=== PATIENT | male | born 1995 | race Caucasian/White ===

== ENCOUNTER 2020-11-09 05:28 | Inpatient (IN) | payer OTHER ==
[~2020-11-09] VITALS: Ht 203.2 cm; Wt 125.2 kg
[2020-11-09] VITALS (10 sets, daily range): BP systolic 128–178; BP diastolic 68–112
[2020-11-09] MEDS ORDERED: HUMALOG100 UNIT/1 SUBQ (05:52)
[2020-11-09 05:57] LABS: BE(vivo) -21.8 mmol/L (-2 to +3); HCO3 7.5 mmol/L (22.0-26.0); PCO2 VENOUS 28.1 mmHg (41.0-51.0); PO2 VENOUS 30.8 mmHg (35.0-45.0)
[2020-11-09 06:15] LABS: HEMATOCRIT 54.6 % (42.0-52.0); HEMOGLOBIN 17.8 gm/dL (14.0-18.0); MCH 31.1 pg (26.0-34.0); MCHC 32.6 g/dL (28.0-37.0); MCV 95.3 fL (80.0-100.0); PLATELET COUNT 366 thou/uL (150-400); RBC 5.73 mil/uL (4.50-6.00); RDW 14.9 % (10.5-14.5); WBC 22.6 thou/uL (4.0-11.0)
[2020-11-09 06:19] LABS: URINE BILIRUBIN NEGATIVE (Negative); URINE BLOOD 2+ (Negative); URINE CLARITY CLEAR; URINE COLOR YELLOW; URINE GLUCOSE-RANDOM* 3+ (Negative); URINE KETONES 3+ (Negative); URINE LEUKOCYTES-REFLEX NEGATIVE (Negative); URINE NITRITE-REFLEX NEGATIVE (Negative); URINE PROTEIN (DIPSTICK) 2+ (Negative); URINE SPECIFIC GRAVITY >= 1.030 (1.005-1.035); URINE UROBILINOGEN 0.2 E.U./dl (0.2-1.0)
[2020-11-09 06:42] LABS: BE(vivo) -22.4 mmol/L (-2 to +3); HCO3 4.3 mmol/L (22.0-26.0); PCO2 13.4 mmHg (35.0-45.0); PO2 115.4 mmHg (80.0-100.0); pH 7.122 (7.360-7.450); sO2 96.9 % (92.0-98.0)
[2020-11-09 07:03] LABS: CASTS None Seen /LPF (None Seen); MUCUS 0-3 Light strn/LPF (None Seen); SQUAMOUS 0-3 Few /LPF (0-3)
[2020-11-09 07:05] LABS: BACTERIA-REFLEX None Seen /HPF (None Seen); CRYSTALS None Seen /LPF (None Seen); URINE RBC 1-2 Rare /HPF (NONE SEEN); URINE WBC-REFLEX 0-5 Rare /HPF (0-5)
[2020-11-09 07:09] LABS: ABSOLUTE NEUTROPHILS 19.2 thou/uL (1.4-8.2)
[2020-11-09 07:10] LABS: ANISOCYTOSIS 1+
--- NOTE | 2020-11-09 08:28 | NUR ---
CALLED AND SPOKE WITH NECK BAND SETTER, STATES PT BLOOD NEEDS TO BE SPUN & RAN AGAIN REPORTS LABS SHOULD BE COMPLETED IN APPROX 20 MIN, NOTIFIED PROVIDER
[2020-11-09 09:31] LABS: ALBUMIN 2.8 g/dL (3.4-5.0); CALCIUM 7.9 mg/dL (8.5-10.1); CREATININE 1.1 mg/dL (0.7-1.3); TOTAL BILIRUBIN 0.9 mg/dL (0.2-1.0); TOTAL PROTEIN 7.9 g/dL (6.4-8.2)
[2020-11-09 09:33] LABS: POTASSIUM 5.7 mmol/L (3.5-5.1)
[2020-11-09 09:56] LABS: PHOSPHORUS 2.3 mg/dL (2.6-4.7)
--- NOTE | 2020-11-09 12:15 | NUR ---
Admitted to icu #[id number] with diagnosis: DKA. alert/oriented, cooperative, SR, room air, insulin gtt infusing, tolerating fluids/ice chips, voiding per urinal.
[2020-11-09] MEDS ORDERED: ACETAMINOPHEN325 M1 PO (14:44)
[2020-11-09 16:55] LABS: MAGNESIUM 2.2 mg/dL (1.8-2.4)
[2020-11-09 17:36] LABS: ALBUMIN 3.2 g/dL (3.4-5.0); CALCIUM 8.6 mg/dL (8.5-10.1); CREATININE 0.9 mg/dL (0.7-1.3); PHOSPHORUS 1.6 mg/dL (2.5-4.9)
[2020-11-09 17:46] LABS: POTASSIUM 4.2 mmol/L (3.5-5.1)
[2020-11-09 20:31] LABS: ALBUMIN 2.7 g/dL (3.4-5.0); CALCIUM 8.4 mg/dL (8.5-10.1); PHOSPHORUS 0.7 mg/dL (2.6-4.7)
[2020-11-09 21:04] LABS: POTASSIUM 3.6 mmol/L (3.5-5.1)
[2020-11-10] VITALS (21 sets, daily range): BP systolic 66–136; BP diastolic 32–81
[2020-11-10 00:33] LABS: ALBUMIN 2.7 g/dL (3.4-5.0); CALCIUM 8.7 mg/dL (8.5-10.1); PHOSPHORUS 0.4 mg/dL (2.6-4.7); POTASSIUM 3.2 mmol/L (3.5-5.1)
[2020-11-10 05:07] LABS: GLYCOHEMOGLOBIN (HGB A1C) 12.9 % (4.8-5.6)
[2020-11-10 05:18] LABS: BASOPHILS 1.2 % (0.0-2.0); EOSINOPHILS 1.6 % (0.0-3.0); HEMATOCRIT 42.1 % (42.0-52.0); LYMPHOCYTES 14.9 % (24.0-44.0); MCH 31.5 pg (26.0-34.0); MCHC 34.6 g/dL (28.0-37.0); MCV 91.2 fL (80.0-100.0); MONOCYTES 6.7 % (1.0-8.0); POLYS 75.6 % (36.0-66.0); RBC 4.62 mil/uL (4.50-6.00); RDW 14.2 % (10.5-14.5); WBC 11.9 thou/uL (4.0-11.0)
[2020-11-10 05:32] LABS: CALCIUM 8.6 mg/dL (8.5-10.1); CREATININE 0.8 mg/dL (0.7-1.3); POTASSIUM 3.6 mmol/L (3.5-5.1)
[2020-11-10 05:44] LABS: HEMOGLOBIN 14.5 gm/dL (14.0-18.0); PLATELET COUNT 266 thou/uL (150-400)
--- NOTE | 2020-11-10 06:48 | NUR ---
Pt remains DKA protocol. GAP closed. BS with in range of 150-200 mg/DL as goals. Denies of any GI discomfort. Well tolerated clear liquid diet. VSS. He is continue progressing toward plan of cares.
[2020-11-10 10:23] LABS: ALBUMIN 2.3 g/dL (3.4-5.0); CALCIUM 8.3 mg/dL (8.5-10.1); CREATININE 0.7 mg/dL (0.7-1.3); PHOSPHORUS 0.8 mg/dL (2.5-4.9)
[2020-11-10 14:43] LABS: ALBUMIN 2.3 g/dL (3.4-5.0); CALCIUM 8.2 mg/dL (8.5-10.1); CREATININE 0.9 mg/dL (0.7-1.3); PHOSPHORUS 1.2 mg/dL (2.6-4.7)
[2020-11-10 14:45] LABS: POTASSIUM 2.6 mmol/L (3.5-5.1)
--- NOTE | 2020-11-10 15:19 | NUR ---
ASSUMED CARE OF PT AT 0700. CALLED DR. CUELLO AT 0945 AND RECIEVED ORDERS TO D/C FLUIDS AND INSULIN GTT AND DOWNGRADED TO M/S STATUS. PT AUNT AT BEDSIDE AT 1215. ANSWERED QUESTIONS AND EXPLAINED ALL CARES GIVEN.
--- NOTE | 2020-11-10 15:56 | NUR ---
Discussed during los and hospitalist, possible dc home tomorrow. Ok to vouch for medication r/t no money for co-pay and lost his job. Transfer out of icu, off insulin drip. Safe net packet, good rx card to be provided at dc.
[2020-11-11] VITALS: BP 123/66
[2020-11-11 02:46] LABS: MAGNESIUM 1.9 mg/dL (1.8-2.4)
[2020-11-11 03:01] VITALS: BP 136/86
[2020-11-11 03:13] LABS: ALBUMIN 2.3 g/dL (3.4-5.0); CALCIUM 8.3 mg/dL (8.5-10.1); CREATININE 0.7 mg/dL (0.7-1.3); POTASSIUM 3.2 mmol/L (3.5-5.1); TOTAL BILIRUBIN 0.4 mg/dL (0.2-1.0); TOTAL PROTEIN 6.4 g/dL (6.4-8.2)
--- NOTE | 2020-11-11 05:56 | NUR ---
PT REMAIN ALERT AND ORIENT TIMES FOUR. UP TO TOILET WITH STEADY GAIT. DENIES PAIN, SOB AND N/V. VSS, AFEBRILE. POTASSIUM WAS REPLACED WITH THIS AM LAB. K+ 3.2. GOOD PROGRESS TOWARDS DC GOALS. WILL CONTINUE TO MONITOR.
[2020-11-11 08:00] VITALS: BP 136/86
--- NOTE | 2020-11-11 10:18 | NUR ---
1015HRS - PT VOMITED APPROX 200ML
[2020-11-11] MEDS ORDERED: LANTUS SUBQ ×3 (10:20→15:12)
[2020-11-11] MEDS ORDERED: HUMALOG100 UNIT/1 SUBQ ×3 (10:20→15:12)
[2020-11-11 12:00] VITALS: BP 135/72
--- NOTE | 2020-11-11 14:03 | NUR ---
1330HRS - [facility]. ABLE TO WALK WITHOUT ASSISTANCE FROM [facility] TO [facility]. ATE 1/2 OF LUNCH. REPORTED FEELING FULL. DENIES NAUSEA AT THIS TIME.
--- NOTE | 2020-11-11 14:04 | NUR ---
1405HRS - PT'S AUNT VISITED FROM 10AM TO 1300HRS
[2020-11-11 15:00] LABS: CHOLESTEROL 334 mg/dL (<200); HDL CHOLESTEROL 19 mg/dL (>40); TC:HDL 17.6 Ratio (Not establshd); TRIGLYCERIDE 811 mg/dL (<150); VLDL 162 mg/dL (<40)
[2020-11-11 15:31] VITALS: BP 136/86
--- NOTE | 2020-11-11 15:33 | NUR ---
Per attending in AM review of case: and noted discharge to home today. Previous CM intervention on 11-10-20 as patient given both a Good RX card for prescriptions along with a Safety Net packet for medical follow up post discharge. CM will sign off on case at this time.
--- NOTE | 2020-11-11 16:00 | NUR ---
PATIENT DISCHARGED TO HOME WITH AUNT VIA W/C AT 1550. DISCHARGE INSTRUCTIONS AND INSULIN SLIDING SCALE INSTRUCTIONS REVIEWED WITH PATIENT. VERBALIZED UNDERSTANDING.
[2020-11-11] MEDS ORDERED: OTHER MISCELL (16:43)
== END 2020-11-11 15:50 | disposition home or self-care (01) | DRG 637 ==
LOC: ER 05:28 → ICU 11:03 → EROBS 11:03 → ICU 12:05
PROVIDERS: Emergency Medicine; Nurse Practitioner; ADMIT Hospitalist; ATTEND Hospitalist
DX: E10.10 Type 1 diabetes mellitus with ketoacidosis without coma (principal); R65.11 Systemic inflammatory response syndrome (SIRS) of non-infectious origin with acute organ dysfunction; J45.909 Unspecified asthma, uncomplicated; Z20.822 Contact with and (suspected) exposure to COVID-19; E87.6 Hypokalemia; Z79.899 Other long term (current) drug therapy; Z91.19 Patient's noncompliance with other medical treatment and regimen
CPT/HCPCS: 10078